=== PATIENT | female | born 1950 | race Caucasian/White ===

== ENCOUNTER 2017-02-14 07:23 | Emergency (ER) | payer OTHER ==
[2017-02-14 07:31] VITALS: BP 162/90
--- NOTE | 2017-02-14 07:52 | UC ---
Phong Su Benjamin, scribed for Gilbert Stacy MD on 02/14/17 at 0745 . Skin Complaint HPI - HPI Summary HPI Summary: 66yo female presents to with a tick on the posterior aspect of her right shoulder. Pt states that she had two ticks. Pt reports fully removing one, but thinks that the second one is only partly removed. Pt has recall the exact time of the tick bite but noticed it first this morning. Pt has no significant PMHx. Occasional drinker, but denies any tobacco use. Allergic to PCN. Last tetanus shot unknown. - History of Current Complaint Stated Complaint: TICK ON BACK Hx Obtained From: Patient ?: No Onset/Duration: Sudden Onset, Lasting Hours - SINCE THIS MORNING, Still Present Skin Exposure Onset/Duration: Hours Ago Timing: Constant Onset Severity: Mild Current Severity: None Pain Intensity: 0 Pain Scale Used: 0-10 Numeric Location: Other - RIGHT SHOULDER Aggravating Factor(s): Nothing Alleviating Factor(s): Nothing Associated Signs & Symptoms: Positive: Negative - Allergy/Home Medications Allergies/Adverse Reactions: Allergies Allergy/AdvReac Type Severity Reaction Status Date / Time Penicillins Allergy rash, fever Verified 10/19/14 07:38 Review of Systems Constitutional: Negative Skin: Rash - RED RASH FROM REMOVING HER TICK BITES Eyes: Negative ENT: Negative Respiratory: Negative Cardiovascular: Negative Gastrointestinal: Negative Genitourinary: Negative Motor: Negative Neurovascular: Negative Musculoskeletal: Negative Neurological: Negative Psychological: Negative All Other Systems Reviewed And Are Negative: Yes PMH/Surg Hx/FS Hx/Imm Hx Previously Healthy: Yes - PT DENIES ANY SIGNIFICANT PMHX - Surgical History Surgical History: Yes Surgery Procedure, Year, and Place: sarcome removal left shoulder - Family History Known Family History: Negative: Cardiac Disease, Hypertension - Social History Occupation: Employed Full-time Lives: Alone Alcohol Use: Occasionally Substance Use Type: None Smoking Status (MU): Never Smoked Tobacco Have You Smoked in the Last Year: No Physical Exam Triage Information Reviewed: Yes Appearance: Well-Appearing, No Pain Distress Vital Signs: Initial Vital Signs Temp 98.0 F 02/14/17 07:28 Pulse 86 02/14/17 07:28 Resp 18 02/14/17 07:28 BP 162/90 02/14/17 07:28 Pulse Ox 97 02/14/17 07:28 ENT: Positive: Normal ENT inspection Respiratory: Positive: No respiratory distress, No accessory muscle use Cardiovascular: Positive: Brisk Capillary Refill Abdomen Description: Negative: Distended Musculoskeletal: Positive: ROM Intact Neurological: Positive: Alert, Muscle Tone Normal Psychological: Positive: Normal Response To Family, Age Appropriate Behavior Skin: Positive: Other - she has a scab over the right posterior shoulder without any visible foreign body. No cellulitis. No erythema migrans. She has Course/Dx - Course Course Of Treatment: Reviewed pts medication and allergy lists. High Blood pressure noted. No residual foreign body seen under magnification. Doxy prophylaxis given. Recommend follow up for bp recheck. - Diagnoses Provider Diagnoses: tick bite. hypertension Discharge - Discharge Plan Condition: Good Disposition: HOME Prescriptions: Doxycycline (Monohydrate) [Doxycycline Monohydrate] 200 mg PO ONCE #2 cap Patient Education Materials: Tick Bite (ED), Hypertension (ED) Referrals: Courtney Bravo MD [Primary Care Provider] - 2 Days Additional Instructions: follow up for a blood pressure recheck this week with your primary doctor. The documentation as recorded by the Phong forde Benjamin accurately reflects the service I personally performed and the decisions made by , Gilbert Stacy MD.
== END 2017-02-14 07:50 | disposition home or self-care (01) ==
LOC: UCEAST 07:23
DX: S40.261A Insect bite (nonvenomous) of right shoulder, initial encounter (principal); W57.XXXA Bitten or stung by nonvenomous insect and other nonvenomous arthropods, initial encounter; Y93.9 Activity, unspecified; Y92.9 Unspecified place or not applicable; Y99.9 Unspecified external cause status; I10 Essential (primary) hypertension
CPT/HCPCS: 99212; G0463

== ENCOUNTER 2017-06-20 11:25 | Observation (INO) | payer OTHER ==
[2017-06-20] MEDS ORDERED: NS 0.9% 1000 ML* 1,000 ML IV ONE ×2 (12:13→16:36)
[2017-06-20] MEDS ORDERED: LORazepam INJ* 2 MG/ML 1 ML VIAL IV PUSH ONE (12:13)
[2017-06-20] MEDS ORDERED: Metoprolol Tartrate IV* 1 MG/ML 5 ML VIAL IV ONE (12:13)
[2017-06-20 12:58] LABS: ABS Basophils 0.1 10^3/ul (0-0.2); ABS Eosinophils 0.1 10^3/ul (0-0.6); ABS Lymphocytes 1.4 10^3/ul (1.0-4.8); ABS Monocytes 0.4 10^3/ul (0-0.8); ABS Neutrophils 3.6 10^3/ul (1.5-7.7); ABS Nucleated RBC 0 10^3/ul; Eosinophil % 2.2 % (0-6); Hematocrit 47 % (35-47); Hemoglobin 16.5 g/dl (12.0-16.0); Lymphocyte % 25.5 % (25-47); Mean Corpuscular HGB Conc 35 g/dl (31-36); Mean Corpuscular Hemoglobin 33 pg (27-31); Mean Corpuscular Volume 95 fL (80-97); Mean Platelet Volume 9.2 um3 (7.4-10.4); Nucleated Red Blood Cells % 0.2; Platelet Count 244 10^3/ul (150-450); Red Blood Count 4.96 10^6/ul (4.0-5.4); Red Cell Distribution Width 13 % (10.5-15); White Blood Count 5.7 10^3/ul (3.5-10.8)
[2017-06-20 13:14] LABS: Urine Appearance Clear; Urine Blood Negative (Negative); Urine Color Straw; Urine Ketones Negative (Negative); Urine Protein Negative (Negative); Urine Specific Gravity 1.003 (1.010-1.030); Urine Urobilinogen Negative (Negative)
--- NOTE | 2017-06-20 13:37 | RAD ---
HISTORY: Shortness of breath COMPARISONS: None VIEWS: 4: Frontal dual-energy and lateral views of the chest. FINDINGS: CARDIOMEDIASTINAL SILHOUETTE: The cardiomediastinal silhouette is normal. AURA: The aura are normal. PLEURA: The costophrenic angles are sharp. No pleural abnormalities are noted. LUNG PARENCHYMA: The lungs are clear. ABDOMEN: The upper abdomen is clear. There is no subphrenic gas. BONES AND SOFT TISSUES: No bone or soft tissue abnormalities are noted. OTHER: None. IMPRESSION: NO ACTIVE CARDIOPULMONARY DISEASE.
[2017-06-20] MEDS ORDERED: KCL 20 MEQ/100 ML IVPREMIX* 20 MEQ/100 ML BAG IV ONE (14:53)
[2017-06-20] MEDS ORDERED: Potassium Chlor TAB* 20 MEQ TAB.ER PO ONE ×2 (14:54→20:00)
[2017-06-20] MEDS ORDERED: Metoprolol Tartrate TAB* 25 MG PO SCH (15:00)
[2017-06-20] MEDS ORDERED: Lisinopril TAB* 5 MG PO ONE (15:07)
--- NOTE | 2017-06-20 16:46 | ECHO ---
Patient: JORGE LUIS RITTER [facility] Rec#: [id number] : 1950 Date: 06/20/2017 Age: 66y Height: 162.56 cm / 64.0 in Weight: 58.51 kg / 129.0 lbs Sex: F BSA: 1.62 Room#: -19 Admit Date#: 06/20/2017 Type: Inpatient Referring: Mariama Ramires Reading: Paul Fernandez MD Patient Accounting Representative: Brittney Flores RDCS CC: Courtney Bravo MD Transthoracic Echocardiogram Indication: Abnormal EKG BP: 158/64 HR: 66 Rhythm: NSR Findings History: Newly diagnosed HTN. Technical Comments: The study quality is good. Completed at 1630. Left Ventricle: The left ventricular chamber size is normal. There is no left ventricular hypertrophy. Global left ventricular wall motion and contractility are within normal limits. There is normal left ventricular systolic function. The estimated ejection fraction is 55-60%. There is no consistent Doppler evidence of clinically significant diastolic dysfunction. Left Atrium: The left atrium is severely dilated. Right Ventricle: The right ventricular cavity size is normal. The right ventricular global systolic function is normal. Right Atrium: The right atrium is mildly dilated. Aortic Valve: The aortic valve is trileaflet. There is no evidence of aortic valve thickening. There is mild aortic regurgitation. There is no evidence of aortic stenosis. Mitral Valve: The mitral valve leaflets are mildly thickened. There is mild to moderate mitral regurgitation. There is no evidence of mitral stenosis. Tricuspid Valve: The tricuspid valve leaflets are normal. There is a physiologic tricuspid regurgitation. Unable to estimate the right ventricular systolic pressure. There is no tricuspid stenosis. Pulmonic Valve: The pulmonic valve appears normal. There is a trace pulmonic regurgitation. There is no pulmonic stenosis. Pericardium: There is no significant pericardial effusion. Aorta: There is no dilatation of the ascending aorta. There is no dilatation of the aortic arch. The aortic root is normal in size. Pulmonary Artery: The main pulmonary artery is not well visualized. Venous: The inferior vena cava appears normal in size. There is a greater than 50% respiratory change in the inferior vena cava dimension. Conclusions Global left ventricular wall motion and contractility are within normal limits. There is normal left ventricular systolic function. The estimated ejection fraction is 55-60%. The right ventricular global systolic function is normal. There is mild aortic regurgitation. There is mild to moderate mitral regurgitation. There is a physiologic tricuspid regurgitation. Unable to estimate the right ventricular systolic pressure. There is no significant pericardial effusion. Measurements Name Value Normal Range RVIDd (AP) 2D 2.1 cm (0.9 - 2.6) RVDdMajor (2D) 2.9 cm (2.2 - 4.4) RVAW (2D) 0.7 cm (0.2 - 0.5) RAd ISD 4CH 5 cm (3.4 - 4.9) RA (A4C)W 3.6 cm (2.9 - 4.6) IVSd (2D) 0.9 cm (0.6 - 1) LVPWd (2D) 0.96 cm (0.6 - 1) LVIDd (2D) 4.43 cm (3.6 - 5.4) LVIDs (2D) 3.12 cm - LV FS (2D) 30 % (25 - 45) Aortic Annulus 2.1 cm (1.4 - 2.6) Ao root diameter (2D) 3 cm (2.1 - 3.5) Ascending Ao 2.8 cm (2.1 - 3.4) Aortic arch 2.2 cm (1.8 - 3.4) LA dimension (AP) 2D 3.2 cm (2.3 - 3.8) LAd ISD 4CH 4.9 cm (2.9 - 5.3) LA ISD 4CH W 4.7 cm (2.5 - 4.5) Name Value Normal Range LA ESV SP 4CH (A/L) 62 ml - LA ESV SP 2CH (A/L) 109 ml - LA ESV BP (A/L) 87 ml - LA ESV BP (A/L) index 54 ml/m2 - LA ESV SP 4CH (MOD) 57 ml - LA ESV SP 2CH (MOD) 102 ml - Name Value Normal Range MV E-wave Vmax 0.7 m/sec - MV deceleration time 230.3 msec - MV A-wave Vmax 0.49 m/sec - MV E:A ratio 1.42 ratio - LV septal e' Vmax 0.08 m/sec - LV lateral e' Vmax 0.05 m/sec - LV E:e' septal ratio 8.75 ratio - LV E:e' lateral ratio 14 ratio - Name Value Normal Range AV Vmax 1.36 m/sec - AV VTI 39.03 cm - AV peak gradient 7.47 mmHg - AV mean gradient 5.39 mmHg - LVOT Vmax 0.81 m/sec - LVOT VTI 19.78 cm - LVOT peak gradient 2.63 mmHg - LVOT mean gradient 1.31 mmHg - CHRIST Vmax 0.77 m/sec - Name Value Normal Range MR Vmax 6.57 m/sec - MR VTI 218.9 cm - Name Value Normal Range IVC diameter 1.3 cm - Name Value Normal Range PV Vmax 0.9 m/sec - PV peak gradient 3.24 mmHg -
[2017-06-20] MEDS: Metoprolol Tartrate TAB* 25 MG PO SCH ×2 (17:43→19:57)
[2017-06-20] MEDS: Heparin VIAL(*) 5000 UNITS/ML VIAL (FIVE THOUSAND) SUBCUT SCH (22:03)
--- NOTE | 2017-06-20 22:06 | HP ---
HISTORY AND PHYSICAL: ADDENDUM: Discussed case with Dr. Fernandez. After reviewing monitor telemetry strips with Dr. Fernandez, it appears that what was thought to be atrial flutter appears to be U waves. There was a noted 10 beat run of SVT with a heart rate of 150 noted around 2 p.m. on the telemetry strips. At this point, working diagnosis is SVT and recommendation from Dr. Fernandez is to start the patient on metoprolol tartrate 12.5 mg p.o. b.i.d. She is undergoing the echocardiogram at this time. If the echocardiogram is normal, she can be discharged home tomorrow and follow up with Cardiology as an outpatient. Dr. Fernandez recommended an outpatient Holter monitor. CLAIRE ROCA, JANIYA [id number]/[facility] #: [id number] JORGE
--- NOTE | 2017-06-20 22:40 | HP ---
ADDENDUM NOW INCLUDED ON THIS REPORT HISTORY AND PHYSICAL: DATE OF ADMISSION: 06/20/17 PROVIDER: Claire Roca NP. ATTENDING PHYSICIAN: Dr. Evelia Barber * (report dictated by Claire Roca NP). PRIMARY CARE PROVIDER: Dr. Courtney Bravo. CHIEF COMPLAINT: Syncope. HISTORY OF PRESENT ILLNESS: Ms. Hammer is a 66-year-old female with no significant past medical history, who presents to the emergency department today after a syncopal episode while sitting at her desk at work. She reports this morning around 10 a.m. she was sitting at her desk working on the computer when she reports that her vision became black and she felt warm and she passed out. She is not sure how long she was passed out for and the next thing she remembers she was waking up. She reported when she woke up, she had a sensation if she breathes too deeply she became dizzy and had lightheadedness. She was brought to the emergency department and was found to have paroxysmal atrial flutter with the rate in the 70s and 80s as well as noted hypertension with blood pressures systolically in the 180s and 190s. In the emergency department, she was given metoprolol tartrate 5 mg IV which brought down her pressure a little bit but did not convert her rate. Hospital Medicine was asked to evaluate the patient for admission. On evaluation, the patient was found to be alert and oriented x3, sitting up on the emergency department stretcher, in no acute distress. She reports that she has never had a syncopal episode in the past and has no history of AFib, aflutter. She denies any significant past medical history and takes no daily medications other than a multivitamin. She denies any chest pain, shortness of breath. She denies any recent illnesses, fevers, chills, nausea, vomiting, abdominal pain, or diarrhea. She does report she has noticed palpitations before in the past when she has drank too much caffeine or ate too much sugar. Currently, she reports that she feels that she is at her baseline and offers no complaints. PAST MEDICAL HISTORY: None. CURRENT MEDICATIONS: Multivitamins. ALLERGIES: PENICILLIN. FAMILY HISTORY: Reports both her parents have a history of congestive heart failure. Her mother has a history of lung cancer and was a long-term tobacco smoker. SOCIAL HISTORY: The patient denies history of tobacco abuse. She reports 1 to 2 glasses of wine weekly. 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 She is and has no children. Her healthcare proxy is her ex-, Brent Florez, phone number is [phone]. REVIEW OF SYSTEMS: A 14-point review systems was performed. All the pertinent positives and negatives are mentioned in the history of present illness. Otherwise are negative. PHYSICAL EXAMINATION GENERAL APPEARANCE: Well-developed, 66-year-old female. Alert and oriented x3 , sitting up on the emergency department stretcher, in no acute distress. Very pleasant. Good historian. VITAL SIGNS: Temperature 99.5, heart rate 78, respirations 18, pulse oximetry is 99% on room air. Blood pressure is 166/77. HEENT: Head is normocephalic, atraumatic. Pupils equal, reactive to light. Oropharynx is clear. Moist mucous membranes. Good dentition. NECK: Supple. No JVD noted. LUNGS: Clear to auscultation bilaterally. Good aeration throughout. CARDIAC: Irregularly irregular. No murmur noted. No lower extremity edema noted. ABDOMEN: Soft, nontender, nondistended. Normal bowel sounds throughout. MUSCULOSKELETAL: No clubbing, cyanosis, or edema. Full range of motion of all extremities. Strength is 5/5 throughout. NEURO: Cranial nerves II through XII are grossly intact. No focal deficits noted. PSYCH: Appropriate to situation. No noted anxiety or depression. SKIN: No rashes, lesions, or open wound is noted. Warm, pink and dry. DIAGNOSTIC STUDIES/LABORATORY DATA: Sodium 141, potassium 3.2, chloride 105, carbon dioxide 25, anion gap 11, BUN 12, creatinine 0.83, glucose 100, lactic acid 1.8, calcium 10.4, magnesium 2.2, total bilirubin 0.70. AST 22, ALT 17. Alkaline phosphatase 81. Troponin 0.00. Total protein 7.7, albumin 4.7. TSH 4.05. D- dimer less than 200. WBC is 5.7, RBC is 4.96. HGB 16.5, HCT 47, MCV 95, MCH 33, MCHC 35, RDW 13, platelet count 244. Urinalysis unremarkable. Chest x-ray, impression: No active cardiopulmonary disease. EKG, atrial flutter with the rate of [address] depression in the inferior leads. ASSESSMENT AND PLAN: Ms. Hammer is a 66-year-old female with no significant past medical history, who was sitting in her desk at work today and had a syncopal episode. 1. Syncope. I suspect the syncopal episode is secondary to paroxysmal atrial flutter. I have asked Cardiology to consult and at this point the plan will be to hold any beta-tino as the concern is possibly she had some bradycardia causing the syncope. Her blood pressure is noted to be high and recommendation from Cardiology is to start CODI inhibitor. We will give her lisinopril 5 mg p.o. now and start her at 2.5 mg daily and continue to monitor her blood pressures. She will be admitted to telemetry on observation. Plan for echocardiogram, which is currently being done in the emergency department at this time. We will refer to Cardiology whether to anticoagulate the patient. The patient's initial troponin is 0.00. Plan to recheck a second troponin at this time. It is noted that her potassium is 3.2. We will give replacement and recheck electrolytes in the morning. As well it was noted that her calcium is a little high at 10.4. I have added on a PTH; however, this could be secondary to some mild dehydration and it is also noted that her hemoglobin is a little elevated at 16.5. She has already received 1 liter of normal saline in the emergency department. Orthostatic vital signs were negative. Repeat EKG with second troponin. 2. Diet: Heart-healthy diet. 3. DVT prophylaxis: Moderate risk, heparin 5000 units subcu q. 8 hours, encouraged ambulation. 4. Code status: Full code. 5. Disposition: OBV to telemetry. TIME SPENT: Approximately 60 minutes was spent on this admission. This patient and plan of care was discussed with attending physician, Dr. Barber, who agrees with the plan of care. ADDENDUM: Discussed case with Dr. Fernandez. After reviewing monitor telemetry strips with Dr. Fernandez, it appears that what was thought to be atrial flutter appears to be U waves. There was a noted 10 beat run of SVT with a heart rate of 150 noted around 2 p.m. on the telemetry strips. At this point, working diagnosis is SVT and recommendation from Dr. Fernandez is to start the patient on metoprolol tartrate 12.5 mg p.o. b.i.d. She is undergoing the echocardiogram at this time. If the echocardiogram is normal, she can be discharged home tomorrow and follow up with Cardiology as an outpatient. Dr. Fernandez recommended an outpatient Holter monitor. CLAIRE ROCA, SENIOR SYSTEMS SOFTWARE ENGINEER [id number]/[facility] #: [id number]/[facility] #: [id number] JORGE
[2017-06-21] MEDS: Heparin VIAL(*) 5000 UNITS/ML VIAL (FIVE THOUSAND) SUBCUT SCH ×2 (05:16→15:24)
[2017-06-21 05:22] LABS: ABS Basophils 0.1 10^3/ul (0-0.2); ABS Eosinophils 0.2 10^3/ul (0-0.6); ABS Lymphocytes 1.8 10^3/ul (1.0-4.8); ABS Monocytes 0.5 10^3/ul (0-0.8); ABS Neutrophils 4.4 10^3/ul (1.5-7.7); ABS Nucleated RBC 0 10^3/ul; Hematocrit 44 % (35-47); Hemoglobin 15.1 g/dl (12.0-16.0); Lymphocyte % 25.3 % (25-47); Mean Corpuscular HGB Conc 35 g/dl (31-36); Mean Corpuscular Hemoglobin 33 pg (27-31); Mean Corpuscular Volume 96 fL (80-97); Mean Platelet Volume 9.3 um3 (7.4-10.4); Nucleated Red Blood Cells % 0.2; Platelet Count 230 10^3/ul (150-450); Red Blood Count 4.54 10^6/ul (4.0-5.4); Red Cell Distribution Width 12 % (10.5-15)
[2017-06-21 05:37] LABS: EGFR Non-African American 75.2 (>60)
[2017-06-21] MEDS: Metoprolol Tartrate TAB* 25 MG PO SCH (08:47)
[2017-06-21] MEDS ORDERED: Lisinopril TAB* 5 MG PO SCH (09:00)
[2017-06-21] MEDS ORDERED: Multivitamins/Minerals TAB PO SCH (09:00)
--- NOTE | 2017-06-21 14:58 | PN ---
Subjective Date of Service: 06/21/17 - CC: black out. Interval History: The patient reviewed event yesterday, sitting at desk, blacked out, but did not fall out of her chair. She has had approximately 100 episodes of palpitations since the age of 21 years , never with symptoms. Medications Active Medications: Heparin Sodium (Porcine) (Heparin Vial(*)) 5,000 units SUBCUT Q8HR [facility] Last Admin: 06/21/17 05:16 Dose: 5,000 units Metoprolol Tartrate (Lopressor Tab*) 12.5 mg PO Q12HR [facility] Last Admin: 06/21/17 08:47 Dose: 12.5 mg Multivitamins/Minerals (Theragran/Minerals Tab*) 1 tab PO DAILY [facility] Last Admin: 06/21/17 08:59 Dose: Not Given Objective Vital Signs: Temp Pulse Resp BP Pulse Ox 98.2 F 80 16 130/63 98 06/21/17 07:21 06/21/17 07:21 06/21/17 08:00 06/21/17 07:21 06/21/17 07:21 Vital Signs 06/20/17 06/20/17 06/20/17 15:30 16:00 16:20 Temperature 97.7 F Pulse Rate 72 68 Respiratory 21 16 18 Rate Blood Pressure 199/89 189/68 182/64 (mmHg) O2 Sat by Pulse 99 99 Oximetry 06/20/17 06/20/17 06/20/17 16:31 17:00 17:12 Temperature 98.2 F Pulse Rate 85 Respiratory 20 16 16 Rate Blood Pressure 168/72 (mmHg) O2 Sat by Pulse 99 Oximetry 06/20/17 06/20/17 06/21/17 19:28 23:32 03:36 Temperature 98.0 F 97.9 F 97.8 F Pulse Rate 65 63 63 Respiratory 16 16 16 Rate Blood Pressure 152/71 144/60 134/69 (mmHg) O2 Sat by Pulse 98 98 97 Oximetry 06/21/17 06/21/17 07:21 08:00 Temperature 98.2 F Pulse Rate 80 Respiratory 16 16 Rate Blood Pressure 130/63 (mmHg) O2 Sat by Pulse 98 Oximetry Oxygen Devices in Use Now: None Appearance: fit appearing woman, working on computer, no distress. Eyes: No Scleral Icterus, PERRLA Ears/Nose/Mouth/Throat: Clear Oropharnyx, Mucous Membranes Moist Neck: NL Appearance and Movements; NL JVP, Trachea Midline, No Thyroid Enlargement, Masses Respiratory: Symmetrical Chest Expansion and Respiratory Effort, Clear to Auscultation Cardiovascular: NL Sounds; No Murmurs; No JVD, RRR Abdominal: No Hepatosplenomegaly Skin: No Rash or Ulcers Neurological: Alert and Oriented x 3, NL Muscle Strength and Tone Lines/Tubes/Other Access: Clean, Dry and Intact Peripheral IV Laboratory Results: 06/21/17 04:55 06/21/17 04:55 Total Bilirubin 0.70 mg/dL (0.2-1.0) 06/20/17 12:35 AST 22 U/L (13-39) 06/20/17 12:35 ALT 17 U/L (7-52) 06/20/17 12:35 Alkaline Phosphatase 81 U/L (34-104) 06/20/17 12:35 Total Protein 7.7 g/dL (6.4-8.9) 06/20/17 12:35 Albumin 4.7 g/dL (3.2-5.2) 06/20/17 12:35 Globulin 3.0 g/dL (2-4) 06/20/17 12:35 Albumin/Globulin Ratio 1.6 (1-3) 06/20/17 12:35 TSH 4.05 mcIU/mL (0.34-5.60) 06/20/17 12:35 06/20/17 16:10 Troponin I 0.01 Diagnostic Imaging: Stress test: Per verbal report from Dr Haynes, report is not in chart: Exercise portion no ischemia, in recovery STdepression. No symptoms. EKG Data: Montior: NSR, occasional PAC's. Assessment/Plan 66 yo woman, healthy, with transient black out spell seated, did not fall off chair. SVT per verbal report from Dr. Fernandez on monitor strips in ED (no strips printed or saved). Hypertensive this admission, new, pt follows with MD regularly. Black out: Etiology uncertain. Possible SVT which could drop BP transiently. Pt drinks coffee and occasional alcohol, if tachyarrhythmias confirmed could decrease or stop and see if decrease in palpitations. Recommend out patient event monitor, I called my office to set up with Dr. Fernandez to read. HTN: Improved with low dose beta tino Consider going home on beta tino (although more apt to catch tachyarrhythmias if goes off). Out pt measurements to help verify if chronic vs. related to event/ anxiety. UA did not show any protein, could consider echo to look for LVH, evidence of longer standing BP elevation and for any anatomical issues that could contribute to palpitations/sycope. Abnormal treadmill stress: Out patient stress test with imaging, either stress echo or exercise myoview study. UA: low SG noted, uncertain significance. Follow up with Dr. Fernandez as out patient.
[2017-06-21 15:15] VITALS: BP 134/63
--- NOTE | 2017-06-22 11:59 | CONS ---
CC: Dr. Courtney Bravo * CARDIOLOGY CONSULTATION: DATE OF CONSULT: 06/20/17 INDICATION FOR CONSULTATION: Syncope. HISTORY OF PRESENT ILLNESS: The patient is a 66-year-old female with a history of borderline hypertension who came to the emergency room because of syncopal episodes. The patient states that she was at her computer and all of a sudden everything went black. She lost consciousness. She did not fall out of her chair. She thinks it lasted just a few seconds and then was awake. She had no prodrome prior to the episodes. She had no palpitations. No nausea or vomiting. No diaphoresis. Afterwards, she felt relatively well, but decided to come to the emergency room for evaluation. In the emergency room, she was in normal sinus rhythm. There was some question of having runs of atrial flutter. I looked through her telemetry strips in great detail and found no evidence of atrial flutter; however, she clearly had a 10-beat run of supraventricular tachycardia at a rate of 160 beats per minute. It was self- terminated. There was no symptoms associated with it. PAST MEDICAL HISTORY: Significant for borderline hypertension. PAST SURGICAL HISTORY: No surgical history. CURRENT MEDICATIONS: Multivitamin a day. ALLERGIES: PENICILLIN. FAMILY HISTORY: Her mother had history of congestive heart failure and lung cancer. SOCIAL HISTORY: She drinks 1 to 2 glasses of wine a week. She denies any tobacco use. 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 She does get regular exercise. PHYSICAL EXAM: Height is 5 feet 4 inches, weight is 132 pounds. Vital Signs: Blood pressure 134/69, heart rate is 63, respiratory rate is 16, temperature 97.8, oxygen saturation 97% on room air. Sclerae anicteric. Oropharynx is pink without erythema. Carotids are 2+ without bruits. JVD is normal. Thyroid is normal. Cardiac Exam: S1 and S2 without any murmurs, rubs, or gallops. Lungs are clear to auscultation bilaterally. There is no dullness to percussion. Abdomen is soft, nontender, and nondistended with normoactive bowel sounds. Extremities show no edema. She has 2+ pulses throughout. The patient is awake, alert, and oriented. She moves all 4 extremities equally. DIAGNOSTIC STUDIES/LAB DATA: EKG demonstrates normal sinus rhythm with nonspecific T-wave abnormalities and echocardiogram showed normal LV size and systolic function. No valvular abnormalities. Laboratory Studies: Chemistries within normal limits. Troponins are negative x2. TSH is normal at 4.05. CBC within normal limits. IMPRESSION: This is a 66-year-old female with a history of borderline hypertension who was brought to the emergency room because of a syncopal episode. As described above, she was working at a computer and suddenly had faded to black. Again, she did not have any prodrome symptoms. She did have a run of nonsustained supraventricular tachycardia at approximately 8 to 10 beats of SVT at a rate of 160 beats per minute. There was no evidence of atrial flutter on her telemetry. For now, my recommendation is to observe the patient overnight. The patient will get an event monitor as an outpatient. I will see the patient in followup as an outpatient. This case was discussed with Mariama Ramires, nurse practitioner. [id number]/[facility] #: [id number] JORGE
== END 2017-06-21 15:30 | disposition home or self-care (01) ==
LOC: ED 11:25 → MEDTELE 14:22
PROVIDERS: ADMIT Internal Medicine Geriatric Medicine; ATTEND Internal Medicine Geriatric Medicine
DX: R55 Syncope and collapse (principal); I10 Essential (primary) hypertension; I48.92 Unspecified atrial flutter; I51.7 Cardiomegaly
CPT/HCPCS: 36415; 71046; 80048; 80053; 81003; 82330; 83605; 83735; 83970; 84443; 84484; 85025; 85379; 93005; 93017; 93306; 96361; 96372; 96374; 99285; A9270-GY; G0378; J1644; J3490